=== PATIENT | male | born 1995 | race Caucasian/White ===

== ENCOUNTER 2023-11-22 13:01 | Emergency (ER) | payer OTHER, SELFPAY ==
[2023-11-22 13:04] VITALS: BP 128/75; PULSE 93; RESP 16; TEMP 36; O2SAT 98; BMI 39.9
--- NOTE | 2023-11-22 13:23 | EX.ED.UPPERE ---
HPI <BETZAIDA Gannon - Last Filed: 11/22/23 15:39> History of Present Illness Chief Complaint: Upper Extremity Injury Narrative Narrative: Patient presenting today with a laceration to his left thumb that he got this afternoon. He reports that he was working with a saw when he accidentally cut his finger. He is not on any blood thinners, he denies any other injury. He is unsure when his last tetanus was updated. PFSH <BETZAIDA Gannon - Last Filed: 11/22/23 15:39> [facility] Social History Smoking Status: Never smoker ROS <BETZAIDA Gannon - Last Filed: 11/22/23 15:39> ROS ED Constitutional Constitutional ED: Denies chills or fever(s) Cardiovascular Cardiovascular: Denies chest pain Respiratory/Chest Respiratory/Chest: Denies cough or dyspnea Gastrointestinal Gastrointestinal: Denies abdominal pain, nausea or vomiting Musculoskeletal Musculoskeletal: Denies arthralgias or myalgias Integumentary Reports laceration Neurologic Neurologic: Denies paresthesias EXAM <BETZAIDA Gannon - Last Filed: 11/22/23 15:39> Physical Exam Const Vital Signs: 11/22/23 13:04 Temperature 96.8 F L Temperature Source Temporal Pulse Rate 93 Respiratory Rate 16 Blood Pressure 128/75 H Blood Pressure Mean 92 Pulse Ox 98 Oxygen Delivery Method Room Air Positive well nourished, well developed and no apparent distress General Appearance ED: well developed HEENT Reports normocephalic and head/scalp atraumatic Mouth ED: Yes moist mucous membranes normal Eyes PERRL and EOMs intact bilaterally Neck full ROM and supple Chest Wall inspection of chest normal Resp normal respiratory effort and clear to auscultation bilaterally Cardio regular rate and regular rhythm GI soft to palpation, non-tender, non-distended and no masses Back/Spine normal ROM and normal to inspection Extremity normal to inspection and full ROM Extremity Narrative: 1.5 cm macerated full-thickness laceration there is a macerated laceration just above to the left thumb above the IP joint, palmar aspect. Full flexion and extension at the MCP and IP joint of the left first finger. Left radial pulse 2+, good capillary refill, sensation intact. Neuro oriented x3, CN's II-XII intact bilaterally, moves all extremities, no focal motor deficits and no sensory deficits noted Sensorium / Orientation: awake and alert Psych mental status grossly normal and thought process normal [facility] <BETZAIDA Gannon - Last Filed: 11/22/23 15:39> [facility] Narrative Medical decision making narrative: Patient presenting with a complex laceration to his left thumb. He does have full flexion and extension at the MCP and IP joint. Tetanus will be updated. X-ray of the finger obtained to rule out bony injury and is negative. Finger was copiously irrigated and cleaned with chlorhexidine. Digital block performed, finger was sutured. There was a large section that was unable to be sutured due to it being macerated, this will heal by secondary intention. I did discuss wound care instructions. He is to have stitches removed in 7 days and follow-up with his PCP in 5 to 7 days to have the wound reexamined. He was bandaged with bacitracin ointment. He will be discharged home in stable condition and is comfortable with plan. Radiography X-Ray: Read by ED Physician <Dr. Jose D Ozuna MD - Last Filed: 11/22/23 16:59> [facility] Narrative Medical decision making narrative: Patient presenting with a complex laceration to his left thumb. He does have full flexion and extension at the MCP and IP joint. Tetanus will be updated. X-ray of the finger obtained to rule out bony injury and is negative. Finger was copiously irrigated and cleaned with chlorhexidine. Digital block performed, finger was sutured. There was a large section that was unable to be sutured due to it being macerated, this will heal by secondary intention. I did discuss wound care instructions. He is to have stitches removed in 7 days and follow-up with his PCP in 5 to 7 days to have the wound reexamined. He was bandaged with bacitracin ointment. He will be discharged home in stable condition and is comfortable with plan. I have personally performed a face to face assessment of the patient and have reviewed the CHRISTO Note. I performed a substantive portion of the visit including all aspects of the following. My grant findings include: History is patient has injury to left thumb. [id number]. This occurred with a saw. Patient has avulsed tissue on the volar surface of the left thumb. There is also laceration and near the IP joint volar surface. He denies paresthesia, anesthesia motors. Uncertain last tetanus. Exam is patient flexor and extensor mechanism intact. Sensations intact. There is no subungual Shane. Medical Decision Making x-ray was obtained to rule out bony abnormality. Three-view x-ray of the thumb reveals no evidence of foreign body or fracture. Wound was cleansed anesthetized and sutured to approximate the laceration that is perpendicular to the abraded area. There is loss of tissue 5 mm x 1 to 1.5 cm. Other additions or changes: Laceration was repaired by the physician group fitness assistant department head under my supervision. Procedures <BETZAIDA Gannon - Last Filed: 11/22/23 15:39> Lacerations Laceration: Length: 0.59 in Depth: Sub Q Shape: complex Prep: Chlorhexadine Laceration repair: Digital block, Irrigated, Lidocaine and Wound explored Number of Sutures/Tribune: 6 Suture Information: Ethilon, Simple and 5-0 Discharge Plan Triage Chief Complaint: Upper Extremity Injury ED Midlevel Provider: Sofiya Carballo ED Provider: Jose D Ozuna Dx/Rx/DC Orders Clinical Impression: Laceration Instructions: ED Laceration, All Closures Primary Care Provider: Care Physician,No Primary Activity Restrictions/Additional Instructions: Please have stitches removed in 7 days. Keep an eye out for any signs of infection and return for any increased redness, swelling, or purulent discharge from the wound. Keep area clean and covered, especially while working. Disposition Disposition: Home, Self Care Discharge Date/Time: 11/22/23 15:00
--- NOTE | 2023-11-22 13:49 | RAD_ITS ---
STUDY: X-RAY - LEFT THUMB REASON FOR EXAM: Male, 27 years old. thumb TECHNIQUE: 3 view(s) of the finger were obtained. COMPARISON: None. FINDINGS: Normal metacarpal head. Normal metacarpophalangeal joint. Normal proximal phalanx. Normal middle phalanx. Normal distal phalanx. Normal proximal interphalangeal joint. Normal distal interphalangeal joint. There is no demonstrated fracture. RAD/Finger(s) Min 2 Views IMPRESSION: Normal x-ray examination of the finger. Electronically Signed: Charles Trevino MD at 14:46 EST ,
[2023-11-22] MEDS: Diphth,Pertuss(Acell),Tet Vac 0.5 ML Vial IM (14:19)
[2023-11-22] MEDS: Lidocaine 1% (20 ml mdv) 20 ML Vial 10 ML INFILT (14:20)
== END 2023-11-22 15:00 | disposition home or self-care (01) ==
LOC: ED 14:52
PROVIDERS: Emergency Provider Emergency Medicine; Visit Provider Emergency Medicine
DX: S61.012A Laceration without foreign body of left thumb without damage to nail, initial encounter (principal); Z23 Encounter for immunization; W27.8XXA Contact with other nonpowered hand tool, initial encounter
CPT/HCPCS: 12001; 73140; 90471; 99284